=== PATIENT | female | born 1955 ===

== ENCOUNTER 2024-11-25 05:00 | Outpatient (RCR) | payer OTHER, SELFPAY | END 2024-12-24 23:59 | disposition home or self-care (01) | LOC: GPT 05:00 | PROVIDERS: Visit Provider Orthopaedic Surgery | DX: Z48.89 Encounter for other specified surgical aftercare (principal) | CPT/HCPCS: 97161 ==

== ENCOUNTER 2024-12-25 05:00 | Outpatient (RCR) | payer OTHER, SELFPAY | END 2025-01-24 23:59 | disposition home or self-care (01) | LOC: GPT 05:00 | PROVIDERS: Visit Provider Orthopaedic Surgery | DX: Z48.89 Encounter for other specified surgical aftercare (principal) | CPT/HCPCS: 97110; 97112; 97140 ==

== ENCOUNTER 2025-01-25 05:00 | Outpatient (RCR) | payer OTHER, SELFPAY | END 2025-02-23 23:59 | disposition home or self-care (01) | LOC: GPT 05:00 | PROVIDERS: Visit Provider Orthopaedic Surgery | DX: Z48.89 Encounter for other specified surgical aftercare (principal) | CPT/HCPCS: 97110; 97112; 97140 ==